=== PATIENT | female | born 1980 | race Native Hawaiian/Other Pacific Islander ===

== ENCOUNTER 2018-05-07 09:15 | Outpatient (CLI) | payer OTHER | END 2018-05-07 23:39 | disposition home or self-care (01) | LOC: MAMMO 09:15 | DX: N64.4 Mastodynia (principal) ==

== ENCOUNTER 2019-01-30 22:16 | Outpatient (CLI) | payer OTHER | END 2019-01-30 22:26 | disposition short-term general hospital (02) | LOC: AMB 22:16 | DX: O26.93 Pregnancy related conditions, unspecified, third trimester (principal); Z3A.39 39 weeks gestation of pregnancy; Z37.9 Outcome of delivery, unspecified | CPT/HCPCS: A0425; A0429 ==

== ENCOUNTER 2020-02-03 15:56 | Emergency (ER) | payer OTHER ==
[~2020-02-03] VITALS: Ht 142.2 cm; Wt 68.0 kg
[2020-02-03 16:05] VITALS: TEMP 97.7
[2020-02-03 18:39] VITALS: BP 116/72
== END 2020-02-03 18:39 | disposition home or self-care (01) ==
LOC: ED 15:56
DX: S39.012A Strain of muscle, fascia and tendon of lower back, initial encounter (principal); M47.816 Spondylosis without myelopathy or radiculopathy, lumbar region; X50.9XXA Other and unspecified overexertion or strenuous movements or postures, initial encounter; Y92.89 Other specified places as the place of occurrence of the external cause
CPT/HCPCS: 81000; 99283

== ENCOUNTER 2021-10-06 13:33 | Emergency (ER) | payer OTHER ==
[~2021-10-06] VITALS: Ht 142.2 cm; Wt 52.2 kg
[2021-10-06 13:39] VITALS: BP 106/67; TEMP 97
== END 2021-10-06 14:08 | disposition home or self-care (01) ==
LOC: ED 13:33
DX: M72.2 Plantar fascial fibromatosis (principal)
CPT/HCPCS: 99282

== ENCOUNTER 2021-11-29 15:45 | Outpatient (CLI) | payer OTHER | END 2021-11-29 18:58 | disposition home or self-care (01) | LOC: RAD 15:45 | PROVIDERS: ATTEND Internal Medicine | DX: M79.671 Pain in right foot (principal) ==